=== PATIENT | female | born 1990 | race Caucasian/White ===

== ENCOUNTER 2017-01-12 16:12 | Inpatient (IN) ==
[2017-01-12 16:42] LABS: Basophils % 0.3 %; Eosinophils # 0.1 K/mcL (0.0-0.6); Eosinophils % 0.9 %; Hematocrit 33.2 % (35.3-44.9); Hemoglobin 11.4 g/dL (11.5-15.4); Immature Granulocytes % 0.9 % (0-4); Lymphocytes # 1.5 K/mcL (0.6-4.6); Lymphocytes % 14.4 %; Mean Corpuscular HGB Conc 34.3 g/dL (31.6-35.5); Mean Corpuscular Hemoglobin 28.6 pg (28.0-33.3); Mean Corpuscular Volume 83.2 fL (83.0-100.0); Mean Platelet Volume 10.7 fL (9.4-12.4); Monocytes # 0.8 K/mcL (0.0-1.3); Monocytes % 7.8 %; Neutrophils # 7.9 K/mcL (1.6-8.9); Platelet Count 234 K/mcL (140-400); Red Blood Count 3.99 M/mcL (3.82-4.97); Red Cell Distribution Width 13.4 % (11.5-14.5); Segmented Neutrophils % 75.7 %
[2017-01-12 16:54] LABS: Alanine Aminotransferase 8 Units/L (0-55); Aspartate Amino Transferase 16 Units/L (5-34); BUN/Creatinine Ratio 10 (6-26); Blood Urea Nitrogen 8 mg/dL (7-20); Lactate Dehydrogenase 217 Units/L (159-327); Uric Acid 4.2 mg/dL (2.6-6.0); eGFR For African Americans > 60 (> 60); eGFR For Non-African Americans > 60 (> 60)
[2017-01-12] MEDS ORDERED: *HR* Labetalol 20 MG/4 ML SYRINGE IVP ONE ×4 (17:00→18:08)
[2017-01-12] MEDS ORDERED: Ringers Solution, Lactated 1,000 ML ONE (17:00)
[2017-01-12] MEDS ORDERED: Famotidine 20 MG/2 ML VIAL IVP PRN (18:13)
[2017-01-12] MEDS ORDERED: Naloxone 0.4 MG/ML INJ IVP PRN (18:13)
[2017-01-12] MEDS ORDERED: Oxytocin 20 units/ LR 1000 mL 20 UNIT/1,000 ML BAG IVC SCH (18:15)
[2017-01-12] MEDS ORDERED: Ringers Solution, Lactated 1,000 ML IVC SCH (18:15)
[2017-01-12 18:27] LABS: Protein/Creatinine Ratio,Urine 2.37 mg/mg (0-0.20)
--- NOTE | 2017-01-12 18:31 | OB/GYN History & Physical ---
Date of Encounter: 01/12/17 Time of Encounter: 18:24 History of Present Illness Chief complaint: Hypertension in HPI: Ms. Humphrey is a 26 year old at 38 weeks and 6 days gestation that was sent to labor and delivery from the office today due to proteinuria. Upon arrival to labor and delivery her blood pressures were running 160-170's/100's. She denies headache, vision changes, epigastric pain, vaginal bleeding, and leaking of fluid. She states positive movement. She is GBS negative. Her blood type is A negative. She is rubella and varicella immune. She is HIV , Hep B, and Treponema negative. Past Med Surg Social Fam HX - Past Medical History Medical history: other Psychiatric history: no psych history - Past Surgical History Surgical History: other - Social History Smoking Status: Never smoker Smokeless Tobacco Status: No Alcohol use: none Drug use: none - Family History Mother Living Status: Still Living Hx Family Cardiac Disorders: Yes (HYPERTENSION) Hx Family Respiratory Disorders: No Hx Family Cancer: No Hx Family GI Disorders: No Hx Family Genitourinary Disorders: No Hx Family Endocrine Disorder: No Hx Family Musculoskeletal Disorders: No Hx Family Neuromuscular Disorders: No Hx Family Neurologic Disorders: No Hx Family HEENT Disorders: No Hx Family Autoimmune Disorders: No Hx Family Reproductive Disorders: No Hx Family Psychosocial Disorders: No Hx Family Medical Disorders: No Obstetrical History - Pregnancies : 1 Para: 0 Term: 0 : 0 Ab's: 0 Livin Medications and Allergies Cranberry Fruit Extract [Cranberry] 1 tab PO DAILY 01/12/17 [History] Loratadine [Claritin] 1 tab PO DAILY 01/12/17 [History] Multivitamin [Flintstones] 2 tab PO DAILY 01/12/17 [History] Allergies No Known Allergies Allergy (Verified 01/12/17 16:31) Review of System OB All systems PM: reviewed and no additional remarkable complaints except as stated Exam - Constitutional Constitutional: well developed, well nourished, no acute distress, average body habitus - HEENT HEENT: Normocephaly, Mucus Membranes Moist - Neck Neck exam: normal inspection - Lungs Respiratory exam: CTAB - Cardiovascular Cardiovascular exam: RRR, +S1, +S2 - Abdomen Abdomen: Present: bowel sounds normal, gravid - Extremities Extremities exam: normal capillary refill, normal inspection, radial pulses palpable and symetrical Deep Tendon Reflex Grade: 3+ Normal But Brisk - Cervix Dilation: 3 (3-4 per office) Effacement: 50 (per office) Station: -3 - Uterus Uterus exam: Present: normal size, normal contour - Comments Comments: FHTs 160 with moderate variability, 15x15 accels and no decels TOCO no contractions noted, no contractions palpated, uterus palpates soft and nontender Results Result Diagrams: 01/12/17 16:30 01/12/17 16:30 Abnormal lab results Hgb 11.4 g/dL (11.5-15.4) L 01/12/17 16:30 Hct 33.2 % (35.3-44.9) L 01/12/17 16:30 All other labs normal. - VTE Reasons for not Prescribing Prophylaxis: Treatment not Indicated - Low risk for VTE
[2017-01-12] MEDS ORDERED: Calcium Gluconate 1,000 MG/10 ML VIAL IVPB PRN (18:50)
[2017-01-12] MEDS ORDERED: Calcium Gluconate 1,000 MG/10 ML VIAL IVPB ONE (18:53)
--- NOTE | 2017-01-12 18:55 | Event Note ---
Date of Encounter: 01/12/17 Time of Encounter: 18:53 Pressures remain elevated (170'2/100's) despite labetalol 40mg given over the past 2 hours. FHTs in 160's with moderate variability, no accels, no decels, uterus soft, no contractions per toco Patient remains asymptomatic Start magnesium 4gm loading dose followed by 2gm/hr Hydralazine 5mg iv now insert urinary catheter begin pitocin induction POC per consult with Dr Ayala
[2017-01-12] MEDS ORDERED: Magnesium Sulfate 2 GM/100 ML PIGGYBACK IV SCH (19:00)
[2017-01-12] MEDS: Magnesium Sulfate 20 gm/500mL 20 GM/500 ML IV.SOLN IV SCH (19:31)
[2017-01-12] MEDS ORDERED: *HR* Morphine 2 MG/ML SYRINGE IVP ONE (20:06)
[2017-01-12] MEDS ORDERED: *HR* Morphine 10 MG/ML VIAL ONE (20:33)
--- NOTE | 2017-01-12 21:59 | OB Labor Progress Note ---
Date of Encounter: 01/12/17 Time of Encounter: 20:15 Labor Progress Note - Subjective Subjective: Patient continues to c/o pain in her right flank and is breathing through contractions - Vital Signs Vital Signs: Blood pressures remain elevated - Cervix Cervix: 3-4/50/-2 mid position - Heart Tones Heart Tones: 150's with moderate variability and 15x15 accels. no decels - [place]: Contractions palpated mild - irregular - Interventions Interventions: Continue to increase pitocin - Plan Plan: Continue to monitor vital signs, neuro, and urine output closely Pitocin currently at 4mu/min continue to increase as per orders Magnesium currently running at 2g/hr Give patient morphine 5mg IVP for pain Give patient 10mg Hydralazine IVP for increased blood pressure Patient may have epidural for pain control - discussed pros/cons of epidural GBS negative Anticipate vaginal delivery POC per consult with Dr Ayala
--- NOTE | 2017-01-12 23:52 | OB Labor Progress Note ---
Date of Encounter: 01/12/17 Time of Encounter: 23:49 Labor Progress Note - Subjective Subjective: Patient resting comfortably in bed. States pain is tolerable. She is lethargic, but is appropriate and awakens easily. - Vital Signs Vital Signs: BP 144/84 P 98 R 16 - Cervix Cervix: 3-4/60-70/-2 Vtx palpable - Heart Tones Heart Tones: 150's with moderate variability no accels no decels category II - Ivan Ivan: Contractions every 3-4 minutes 60 seconds in length palpate moderate uterus palpates soft between contractions - Plan Plan: Continue with routine magnesium monitoring protocol. Pitocin currently at 10mu/min; magnesium currently at 2g/hr Pain is currently well controlled, but patient may have epidural if requested GBS negative Increase pitocin as ordered until adequate labor is established Anticipate vaginal delivery POC per consult with Dr Ayala
[2017-01-13] MEDS ORDERED: Ringers Solution, Lactated 250 ML IVC PRN (02:51)
[2017-01-13] MEDS ORDERED: *HR* FentaNYL (PF) 100 MCG/2 ML VIAL EP ONE (02:51)
[2017-01-13] MEDS ORDERED: *HR* Ropivacaine/PF 0.2% 10 ML AMPUL EP ONE (02:51)
[2017-01-13] MEDS ORDERED: EPHEDrine 50 MG/ML VIAL IVP PRN (02:51)
--- NOTE | 2017-01-13 02:55 | Anesthesia Evaluation PreOp ---
Date of Encounter: 01/13/17 Time of Encounter: 02:30 - Past History Planned Operation: Labor Epidural Cardiac History: HTN (PIH) Pulmonary History: Denies Any Significant HX BOOSTER OPERATOR History: Denies Any Significant HX Other Medical History: Denies Any Significant HX Anesthesia History: No Prior Anesthetic Complications, Past Anesthesia (tonsils , sinus surgery) : Yes Alcohol Use: none Drug use: none Medications and Allergies Cranberry Fruit Extract [Cranberry] 1 tab PO DAILY 01/12/17 [History] Loratadine [Claritin] 1 tab PO DAILY 01/12/17 [History] Multivitamin [Flintstones] 2 tab PO DAILY 01/12/17 [History] Allergies No Known Allergies Allergy (Verified 01/12/17 16:31) - Meds/Allergy Pre-op Review Medications Reviewed: Yes Allergies Reviewed: Yes Beta Blockers on Current Med List: No If Beta Blockers taken, Date/Time (Last Dose taken): Labetalol since admission for [facility] on 01/12 Anesthesia Results - Labs 01/12/17 16:30 01/12/17 16:30 Anesthesia Exam Height: 1.63m Weight: 113.7kg NPO (# of Hours): >4hr Pain Scale: 7 Pain Scale Used: Numeric (1 - 10) - HEENT Pupil (Motor): Pupils equal Mallampati: II Teeth: Normal Oral Opening: Greater than 3 - BOOSTER OPERATOR LOC: Oriented BOOSTER OPERATOR Motor: Normal RUE, Normal LUE, Normal RLE, Normal LLE, Normal Face BOOSTER OPERATOR Sensory: Normal: RUE, LUE, RLE, LLE, Face - Cardiac Rhythm: Regular Murmur: None JVD: No Carotid Bruit: No - Pulmonary Breath Sounds: bilateral Clear Respiratory Effort: Symmetrical Anesthesia Assess/Plan ASA Score: 3 (PIH, BMI 43) Modified Cherry Scale for Level of Consciousness: Cooperative, oriented, and tranquil Anesthetic Plan: Regional Monitoring Plan: Standard Monitors Recovery Plan: Other
[2017-01-13] MEDS ORDERED: Epidural Premix (fent/bupiv) 110 ML EP SCH (03:00)
[2017-01-13] MEDS ORDERED: *HR* FentaNYL (PF) 100 MCG/2 ML VIAL ONE ×2 (03:00→05:56)
[2017-01-13] MEDS ORDERED: Epidural Premix (fent/bupiv) 110 ML EP ONE (03:01)
--- NOTE | 2017-01-13 03:37 | Anesthesia Procedures ---
Date of Encounter: 01/13/17 Time of Encounter: 03:13 Procedures: Anesthesia - Epidural/Spinal Patient ID/Chart reviewed: Yes Patient examined: Yes OB Eval: : 1 OB Eval: Hx Para: 0 OB Eval: Dilated at (cm): 4 OB Eval: Contractions: Non-stressed pattern Consent Obtained: Yes Supplemental Oxygen: None/Room Air Site Prep: Aseptic Technique, Sterile prep and drape, 0.5% Chlorhexidine/Alcohol Patient position: upright Local Anesthetic: Lidocaine 1% Amount of Local Anesthetic used: 2 Touhy Needle Gauge: 18 Touhy Needle Depth (cm): 7 Catheter Depth at Skin (cm): 14 Test Dose (1.5% Lido + Epi): Volume given (mls): 5 Test Dose Result: Negative Loading Dose: Fentanyl (mcg): 100 Loading Dose: Other: Ropivacaine 0.5% 10mL Loading Dose Administered: Thru Catheter Infusion Med: 0.125% Bupivacaine w/ 2 mcg/ml Fentanyl Infusion Rate (mls/hr): 15 (Bolus 4mL q15min; max 3/hr) Catheter Secured in Place: Tegaderm, Tape Interspace Used: L2-L3 Loss of Resistance (LAONSO): Yes Blood: No CSF: No Paresthesia: No Procedure: Patient tolerated well. x1 attempt in sterile fashion. Vitals + FHT's: 0313 - 164/100, 104 0321(test) - HR 112. No change after test 0325 - 139/78, 111 0328 - 152/93, 106
--- NOTE | 2017-01-13 05:32 | OB Labor Progress Note ---
Date of Encounter: 01/13/17 Time of Encounter: 05:20 Labor Progress Note - Subjective Subjective: patient not feeling contractions, comfortable with her epiduraL - Cervix Cervix: 4/80/-2 AROM clear flluid - Heart Tones Heart Tones: FSM placed FHT's 150's with decreased variability with increase variabilty with scalp stimulation - [place]: IUPC placed Contraction every 3-5 min with pitocin off for past 30 min, - Plan Plan: will get stat Mag level with repeat PIH labs, if mag elevated will decrease down to see if will improve variability, if tones do not improve will discuss section
[2017-01-13 05:35] LABS: Basophils # 0.1 K/mcL (0.0-0.2); Basophils % 0.3 %; Eosinophils % 0.1 %; Hematocrit 34.4 % (35.3-44.9); Hemoglobin 11.7 g/dL (11.5-15.4); Immature Granulocytes % 0.8 % (0-4); Lymphocytes # 1.1 K/mcL (0.6-4.6); Lymphocytes % 7.1 %; Mean Corpuscular Hemoglobin 28.8 pg (28.0-33.3); Mean Corpuscular Volume 84.7 fL (83.0-100.0); Mean Platelet Volume 10.8 fL (9.4-12.4); Monocytes % 6.7 %; Neutrophils # 12.8 K/mcL (1.6-8.9); Platelet Count 221 K/mcL (140-400); Red Blood Count 4.06 M/mcL (3.82-4.97); Red Cell Distribution Width 13.7 % (11.5-14.5)
[2017-01-13 05:48] LABS: Alanine Aminotransferase 7 Units/L (0-55); Aspartate Amino Transferase 15 Units/L (5-34); Lactate Dehydrogenase 202 Units/L (159-327); Uric Acid 4.5 mg/dL (2.6-6.0); eGFR For African Americans > 60 (> 60); eGFR For Non-African Americans > 60 (> 60)
[2017-01-13] MEDS ORDERED: Metoclopramide 10 MG/2 ML VIAL ONE (05:48)
[2017-01-13 05:50] LABS: Magnesium 5.4 mg/dL (1.6-2.6)
--- NOTE | 2017-01-13 05:50 | OB Labor Progress Note ---
Date of Encounter: 01/13/17 Time of Encounter: 05:45 Labor Progress Note - Subjective Subjective: heart tones are not improving and seem to be getting flatter, there is no variablilty and blood pressure is elevating again due to patients anxiety, discussed situation with the patient and we have agreed to proceed on with a section. - Heart Tones Heart Tones: FHT's 150's with no variability - [place]: contractions are every 3-5 min - Plan Plan: prep for section anesthesia have been notified
[2017-01-13 05:51] LABS: BUN/Creatinine Ratio 8 (6-26); Blood Urea Nitrogen 6 mg/dL (7-20)
[2017-01-13] MEDS ORDERED: Metoclopramide 10 MG/2 ML VIAL IVP ONE (05:52)
[2017-01-13] MEDS: Magnesium Sulfate 20 gm/500mL 20 GM/500 ML IV.SOLN IV SCH (05:53)
[2017-01-13] MEDS ORDERED: *HR* Oxytocin 10 UNIT/ML VIAL IM ONE (05:56)
[2017-01-13] MEDS ORDERED: Chloroprocaine/PF 20 ML VIAL INFILT ONE (05:56)
[2017-01-13] MEDS ORDERED: *HR* Morphine Sulfate/PF 5 MG/10 ML AMPUL ONE (05:56)
[2017-01-13] MEDS ORDERED: Ringers Solution, Lactated 1,000 ML ONE (06:44)
[2017-01-13] MEDS ORDERED: Ondansetron 4 MG/2 ML VIAL ONE (06:55)
[2017-01-13] MEDS ORDERED: Ondansetron 4 MG/2 ML VIAL IVP PRN ×3 (07:28→15:06)
[2017-01-13] MEDS ORDERED: *HR* HYDROmorphone (PF) 1 MG/ML SYRINGE IVP PRN ×2 (07:28→15:06)
[2017-01-13] MEDS ORDERED: Ibuprofen 400 MG TABLET PO PRN ×2 (07:28→15:06)
[2017-01-13] MEDS ORDERED: *HR* Morphine 2 MG/ML SYRINGE IVP PRN ×2 (07:28→15:06)
[2017-01-13] MEDS ORDERED: Naloxone 0.4 MG/ML INJ IVP PRN ×3 (07:28→15:06)
[2017-01-13] MEDS ORDERED: *HR* OxyCODONE/APAP 5/325 TABLET PO PRN ×2 (07:28→15:06)
[2017-01-13] MEDS ORDERED: Acetaminophen IV 1,000 MG/100 ML INFUS..BTL IVPB ONE ×2 (07:44→08:15)
--- NOTE | 2017-01-13 08:07 | OB/GYN Procedure Note ---
Section - Date of procedure: 01/13/17 Preop diagnosis: other (Intrauterine at 39-0/7 weeks, severe preeclampsia, nonreassuring heart tones) Post-op diagnosis: same Procedure: primary low transverse Surgeon: Ivan Ayala Estimated blood loss (cc): 750 Anesthesiologist: Ana Amaya Registered Nurse Bone Marrow Transplant: Elton Villatoro Anesthesia Type: Epidural section complications: none Disposition: L&D Recovery Room Specimens: Placenta - Infant (s) A Delivery Date: 01/13/17 Delivery Time: 06:49 Presentation: vertex Position: IMER Route of delivery: other ( section) Gender: Female Pounds: 7 Ounces: 1 Gram Weight: 3.2 kg at 1 minute: 8 at 5 minutes: 8 Shoulder Dystocia: not encountered Placenta: spontaneous Cord: nuchal cord (Around left lower extremity), 3 umbilical vessels - Narrative Narrative: Patient is a 26-year-old 1 para 0 at 38-6/7 weeks who presented to labor and delivery from the office due to proteinuria. Patient's has been watched closely some elevated blood pressures blood pressure was slightly elevated office but she was spilling moderate amount of protein. She was sent to labor and delivery for preeclampsia workup upon arrival to labor and delivery blood pressures were markedly elevated 160s over 110 to as high as 180/ 120. Patient did require labetalol on 3 different occasions 10 mg, 10 mg, 20 mg followed by hydralazine 5 mg, 10 mg. We did start on magnesium sulfate milligram loading dose followed by 2 g an hour. Patient's labs were normal but her protein creatinine ratio was 2.27. We did decide to proceed on with delivery she was started on Pitocin. Patient was not making any cervical change and heart tones became very flat with loss of variability. She was artificially ruptured clear fluid noted and internalized. She was pranay well Pitocin had to be turned off due to the loss of variability and was very little reaction to scalp stimulation. Because patient was still only 4 cm in tones did not look well section was called. Procedure: Patient was taken to the operating room where epidural anesthesia was found be adequate. She was placed in the dorsal supine position with leftward tilt and prepped and draped in usual fashion. Timeout was obtained. A Pfannenstiel incision was made with a scalpel and carried down through the underlying tissue to the fascia was identified. Fascia was nicked in midline extended laterally with the Manning scissors. The superior and inferior edges of the fascia were grasped tented up and dissected rectus muscles. Rectus muscles were in midline parietal peritoneum was identified tented up and entered sharply. This was extended superiorly and inferiorly with Metzenbaum scissors. Bladder blade was inserted and vesicouterine peritoneum was identified tented up and entered sharply. This was extended laterally the bladder flap created digitally. The lower uterine segment was then sized with a scalpel and extended laterally with digital manipulation. The 's head was delivered followed by the body. There was a nuchal cord 1 prepped around the lower extremity on the left. Baby was crying cord is clamped and cut infant was handed off to waiting pediatric team. Placenta was spontaneously delivered and the uterus was exteriorized and cleaned of all clots and debris. The lower uterine segment was then closed using an 0 Vicryl in a running locking stitch by a 2 layer closure. Good hemostasis was noted the uterus was returned to the abdomen and gutters were cleaned of all clots and debris and copiously irrigated the fascia was then closed using a #1 stratafix suture in a running stitch from both corners to midline. The skin was then closed using a 0 Vicryl in a subcuticular manner. A gurpreet dressing was applied and the patient was taken to recovery room in stable condition. All needle/sponge counts were correct 3 and she did receive preoperative antibiotics. She will be observed 2 hours before being taken to the floor she will be continued on her magnesium sulfate for 24 hours.
[2017-01-13] MEDS ORDERED: Rho Immune Globulin 1,500 UNIT SYRINGE IM ONE (15:06)
[2017-01-13] MEDS ORDERED: Sennosides 8.6 MG TABLET PO PRN (15:06)
[2017-01-13] MEDS ORDERED: Simethicone 80 MG TAB.CHEW PO PRN (15:06)
[2017-01-13] MEDS ORDERED: Metoclopramide 10 MG/2 ML VIAL IVP PRN (15:06)
[2017-01-13] MEDS ORDERED: Calcium Gluconate 1,000 MG/10 ML VIAL IVPB PRN (15:06)
[2017-01-13] MEDS ORDERED: *HR* OxyCODONE/APAP 10/325 TABLET PO PRN (15:06)
[2017-01-13 15:32] LABS: Basophils % 0.3 %; Eosinophils # 0.1 K/mcL (0.0-0.6); Eosinophils % 0.4 %; Hematocrit 27.5 % (35.3-44.9); Immature Granulocytes % 0.6 % (0-4); Lymphocytes # 1.3 K/mcL (0.6-4.6); Lymphocytes % 10.5 %; Mean Corpuscular HGB Conc 34.9 g/dL (31.6-35.5); Mean Corpuscular Hemoglobin 29.3 pg (28.0-33.3); Mean Corpuscular Volume 83.8 fL (83.0-100.0); Mean Platelet Volume 10.5 fL (9.4-12.4); Platelet Count 190 K/mcL (140-400); Red Blood Count 3.28 M/mcL (3.82-4.97); Red Cell Distribution Width 13.6 % (11.5-14.5); Segmented Neutrophils % 80.2 %
[2017-01-13 15:36] LABS: Hemoglobin 9.6 g/dL (11.5-15.4)
[2017-01-13] MEDS: *HR* OxyCODONE/APAP 5/325 TABLET PO PRN ×2 (15:37→19:30)
[2017-01-13] MEDS: Magnesium Sulfate 20 gm/500mL 20 GM/500 ML IV.SOLN IVC SCH (15:38)
[2017-01-13] MEDS: Oxytocin 20 units/ LR 1000 mL 20 UNIT/1,000 ML BAG IVC SCH ×2 (15:39→22:00)
[2017-01-13 16:10] LABS: Alanine Aminotransferase 7 Units/L (0-55); Aspartate Amino Transferase 17 Units/L (5-34); BUN/Creatinine Ratio 7 (6-26); Lactate Dehydrogenase 323 Units/L (159-327); Uric Acid 4.7 mg/dL (2.6-6.0); eGFR For African Americans > 60 (> 60); eGFR For Non-African Americans > 60 (> 60)
[2017-01-13 16:14] LABS: Blood Urea Nitrogen 5 mg/dL (7-20)
[2017-01-13] MEDS ORDERED: *HR* Labetalol 20 MG/4 ML SYRINGE IVP ONE (18:40)
[2017-01-13] MEDS: Ibuprofen 600 MG TABLET PO PRN (19:30)
[2017-01-14] MEDS: Magnesium Sulfate 20 gm/500mL 20 GM/500 ML IV.SOLN IVC SCH (01:38)
[2017-01-14 03:51] LABS: Basophils % 0.3 %; Eosinophils # 0.1 K/mcL (0.0-0.6); Eosinophils % 0.8 %; Hematocrit 27.6 % (35.3-44.9); Hemoglobin 9.5 g/dL (11.5-15.4); Immature Granulocytes % 1.2 % (0-4); Lymphocytes # 1.3 K/mcL (0.6-4.6); Lymphocytes % 9.9 %; Mean Corpuscular HGB Conc 34.4 g/dL (31.6-35.5); Mean Corpuscular Volume 84.1 fL (83.0-100.0); Mean Platelet Volume 10.3 fL (9.4-12.4); Monocytes # 0.9 K/mcL (0.0-1.3); Monocytes % 6.7 %; Neutrophils # 10.4 K/mcL (1.6-8.9); Platelet Count 189 K/mcL (140-400); Red Blood Count 3.28 M/mcL (3.82-4.97); Red Cell Distribution Width 13.9 % (11.5-14.5); Segmented Neutrophils % 81.1 %
[2017-01-14] MEDS: Ibuprofen 600 MG TABLET PO PRN ×2 (03:57→11:24)
[2017-01-14] MEDS: Prenatal Vit/FA 1 EACH TABLET PO SCH (07:54)
[2017-01-14] MEDS: *HR* OxyCODONE/APAP 5/325 TABLET PO PRN (07:55)
--- NOTE | 2017-01-14 09:04 | OB/GYN Progress Note ---
Date of Encounter: 01/14/17 Time of Encounter: 08:50 - Assessment and Plan (1) S/P Current Visit: Yes Status: Acute (2) Severe pre-eclampsia Current Visit: Yes Status: Acute delivered. Blood pressures are improved. Magnesium discontinued this morning. Ambulate with assist until stable. Tolerating regular diet. Baby is doing well. Qualifiers: Trimester: unspecified trimester Qualified Code(s): O14.10 - Severe pre- eclampsia, unspecified trimester Subjective - Subjective Principal diagnosis: POD 1 primary Patient reports: appetite normal, pain well controlled, no nauseated [place]: doing well Objective - Vital Signs Latest vital signs: Vital Signs Temp Pulse Pulse Resp BP Pulse Ox 01/14/17 07:44 95 14 145/93 01/14/17 06:33 84 18 136/85 01/14/17 05:30 89 20 134/80 01/14/17 04:31 97 16 118/73 01/14/17 03:30 100 18 144/93 01/14/17 02:30 108 18 157/97 01/14/17 01:30 99 16 136/88 01/14/17 00:30 92 16 127/83 01/13/17 23:30 98.2 F 94 16 138/84 93 01/13/17 22:39 90 16 143/83 01/13/17 21:37 98 20 138/87 01/13/17 20:30 100 18 143/88 01/13/17 19:30 98.6 F 101 16 137/87 95 01/13/17 18:23 104 20 158/103 01/13/17 17:20 98.3 F 108 18 151/101 95 01/13/17 16:00 98.3 F 101 18 145/95 95 01/13/17 15:05 98 18 161/96 01/13/17 15:00 98.2 F 101 18 161/96 96 01/13/17 14:00 106 106 18 145/87 01/13/17 13:00 98.1 F 97 98 18 142/80 01/13/17 12:00 103 18 135/79 01/13/17 11:10 98.1 F 102 102 18 143/80 01/13/17 10:10 98.4 F 105 105 18 127/77 01/13/17 09:40 98.2 F 101 101 18 137/75 95 Intake and Output 01/13/17 01/14/17 01/14/17 23:59 07:59 15:59 Intake Total 1000 / 1000 875 / 875 Output Total 1730 / 1730 1720 / 1720 Balance -730 / -730 -845 / -845 Intake: IV Fluids 1000 / 1000 475 / 475 Magnesium Sulfate 20 gm/ 475 / 475 500mL Premix 20 gm In 500 ml @ 2 GM/HR 50 mls/hr IVC .Q10H [facility] Rx#: [id number] Pitocin 20 unit In 1,000 1000 / 1000 ml @ 125 mls/hr IVC .Q8H [facility] Rx#:[id number] Oral 400 / 400 Output: Urine 1330 / 1330 1720 / 1720 Catheter 400 / 400 - Exam Lungs: bilateral: normal Chest: Normal S1, Normal S2 Extremities: Present: normal Abdomen: Present: normal appearance, soft. Absent: distention, tenderness Incision: Present: dressed Uterus: Present: normal, firm - Labs Labs: Laboratory Results - last 24 hr 01/13/17 01/13/17 01/14/17 15:23 15:23 03:41 WBC 12.5 H 12.9 H RBC 3.28 L 3.28 L Hgb 9.6 L D 9.5 L Hct 27.5 L 27.6 L MCV 83.8 84.1 MCH 29.3 29.0 MCHC 34.9 34.4 RDW 13.6 13.9 Plt Count 190 189 MPV 10.5 10.3 Immature Gran % 0.6 1.2 Seg Neutrophils % 80.2 81.1 Lymphocytes % 10.5 9.9 Monocytes % 8.0 6.7 Eosinophils % 0.4 0.8 Basophils % 0.3 0.3 Neutrophils # 10.0 H 10.4 H Lymphocytes # 1.3 1.3 Monocytes # 1.0 0.9 Eosinophils # 0.1 0.1 Basophils # 0.0 0.0 BUN 5 L Creatinine 0.73 Est GFR ( Amer) > 60 Est GFR (Non-Af Amer) > 60 BUN/Creatinine Ratio 7 Uric Acid 4.7 AST 17 ALT 7 Lactate Dehydrogenase 323
[2017-01-15] MEDS: *HR* OxyCODONE/APAP 5/325 TABLET PO PRN ×4 (00:44→20:49)
[2017-01-15] MEDS: Ibuprofen 600 MG TABLET PO PRN ×2 (00:44→07:54)
[2017-01-15] MEDS: Prenatal Vit/FA 1 EACH TABLET PO SCH (07:55)
--- NOTE | 2017-01-15 09:00 | OB/GYN Progress Note ---
Date of Encounter: 01/15/17 Time of Encounter: 08:57 - Assessment and Plan (1) S/P Current Visit: Yes Status: Acute Pt meeting post-op milestones. (2) Severe pre-eclampsia Current Visit: Yes Status: Acute Pt denies s/sx preeclampsia. BP 155/115 this am. Will start medication after discussing with Dr. Ugalde. Pt is s/p 24 hours magnesium. Qualifiers: Trimester: unspecified trimester Qualified Code(s): O14.10 - Severe pre- eclampsia, unspecified trimester Subjective - Subjective Interval history: Pt meeting post-op milestones. Patient reports: appetite normal, voiding normally, pain well controlled, ambulating normally : doing well, nursing well Objective - Vital Signs Latest vital signs: Vital Signs Temp Pulse Resp BP Pulse Ox 01/14/17 19:45 98.4 F 112 16 134/85 97 01/14/17 17:10 98.2 F 100 16 138/87 96 01/14/17 11:20 98.2 F 96 16 138/96 96 Intake and Output 01/14/17 01/15/17 01/15/17 23:59 07:59 15:59 Intake Total 400 / 400 800 / 800 Output Total 800 / 800 650 / 650 Balance -400 / -400 150 / 150 Intake: Oral 400 / 400 800 / 800 Output: Urine 800 / 800 650 / 650 Other: Weight 109.1 kg Patient Weight 01/15/17 23:59 Weight 109.1 kg - Exam Lungs: bilateral: normal Chest: Normal S1, Normal S2 Extremities: Present: edema (2+ pitting bilaterally, no erythema or warmth) Abdomen: Present: soft. Absent: tenderness Incision: Present: dressed (YUMI dry and intact) Uterus: Present: firm
[2017-01-15 14:43] LABS: Basophils % 0.3 %; Eosinophils # 0.2 K/mcL (0.0-0.6); Eosinophils % 1.5 %; Hematocrit 26.6 % (35.3-44.9); Hemoglobin 9.1 g/dL (11.5-15.4); Immature Granulocytes % 0.7 % (0-4); Lymphocytes # 1.7 K/mcL (0.6-4.6); Lymphocytes % 11.5 %; Mean Corpuscular HGB Conc 34.2 g/dL (31.6-35.5); Mean Corpuscular Hemoglobin 29.2 pg (28.0-33.3); Mean Corpuscular Volume 85.3 fL (83.0-100.0); Mean Platelet Volume 9.8 fL (9.4-12.4); Monocytes # 0.9 K/mcL (0.0-1.3); Monocytes % 6.1 %; Neutrophils # 11.9 K/mcL (1.6-8.9); Platelet Count 221 K/mcL (140-400); Red Blood Count 3.12 M/mcL (3.82-4.97); Segmented Neutrophils % 79.9 %
[2017-01-15 14:56] LABS: Alanine Aminotransferase 7 Units/L (0-55); Aspartate Amino Transferase 15 Units/L (5-34); BUN/Creatinine Ratio 15 (6-26); Blood Urea Nitrogen 12 mg/dL (7-20); Lactate Dehydrogenase 233 Units/L (159-327); eGFR For African Americans > 60 (> 60); eGFR For Non-African Americans > 60 (> 60)
--- NOTE | 2017-01-15 20:26 | Internal Medicine Consult Note ---
Date of Encounter: 01/15/17 Time of Encounter: 19:40 - Assessment and Plan (1) Hypertension Current Visit: Yes Status: Acute Assessment and plan: 1. I called and discussed with pharmacy treatment options, especially in the face of breast feeding. 2. Our safest choice is to continue and increase Labetolol. 3. Increase Labetolol to 400 mg TID and monitor BP closely. 4. Repeat chemistries in am. 5. Will order EKG. 6. I'll ask my daytime hospitalists to follow up tomorrow. 7. Recommend outpatient follow up with family physician for continued BP management. 8. If unable to control BP and/or increasing difficulty with management, consider nephrology consult inpatient and/or outpatient follow up. Presently, however, I feel we can stabilize her BP for discharge soon and outpatient follow up. Qualifiers: Hypertension type: other secondary hypertension Qualified Code(s): I15.8 - Other secondary hypertension (2) Severe pre-eclampsia Current Visit: Yes Status: Acute Assessment and plan: 1. Treated with magnesium infusion and delivery per OB. 2. Further treatment per OB. Qualifiers: Trimester: third trimester Qualified Code(s): O14.13 - Severe pre-eclampsia , third trimester Internal Medicine - CN: HPI - Data of Consult Consult date: 01/15/17 Requesting Physician: Sourav Ayala - Consult Narrative Reason for consult: uncontrolled hypertension History of present illness: Ms. Humphrey is a 26 year old female who just delivered her baby 2 days ago by C -section. was uncomplicated until the last few days prior to delivery when she developed severe preeclampsia. Delivery was by . Since delivery, her blood pressure remains elevated she has had some proteinuria. She completed 24 hours of magnesium infusion per OB protocol. Hospitalist group was consulted for blood pressure management Upon my assessment of the patient, she feels well and has no complaints other than edema and blood pressure management. She denies any chest pain, shortness of breath, palpitations, headache, vision changes, nausea, or vomiting. She is breast-feeding her baby. She has no other medical history. Past Med Surg Social Fam HX - Past Medical History Attestation: Yes The following information was validated with the patient. Source: patient, old records reviewed Medical history: no medical history Psychiatric history: no psych history - Past Surgical History Surgical History: other (tonsillectomy/addenoidectomy) - Social History Smoking Status: Never smoker Smokeless Tobacco Status: No Alcohol use: none Drug use: none Occupational status: employed Current living situation: Home, With Family Activity Level: Independent ambulation - Family History Mother Living Status: Still Living Hx Family Cardiac Disorders: Yes (HYPERTENSION) Hx Family Respiratory Disorders: No Hx Family Cancer: No Hx Family GI Disorders: No Hx Family Genitourinary Disorders: No Hx Family Endocrine Disorder: No Hx Family Musculoskeletal Disorders: No Hx Family Neuromuscular Disorders: No Hx Family Neurologic Disorders: No Hx Family HEENT Disorders: No Hx Family Autoimmune Disorders: No Hx Family Reproductive Disorders: No Hx Family Psychosocial Disorders: No Hx Family Medical Disorders: No Father Living Status: Still Living Hx Family Cardiac Disorders: No - Constitutional Constitutional: no chills, no fever(s) - EENT Eyes: no blurry vision, no change in vision Ears: no ear pain, no tinnitus Nose, mouth and throat: no sinus pain, no sore throat - Cardiovascular Cardiovascular ROS IM: edema, no chest pain, no dyspnea, no dyspnea on exertion , no palpitations - Respiratory Respiratory: no cough, no dyspnea - Gastrointestinal Gastrointestinal: no nausea, no vomiting - Musculoskeletal Musculoskeletal ROS IM: no arthralgias, no back pain, no joint swelling - Integumentary Integumentary IM: no rash, no jaundice - Neurological Neurological ROS: no dizziness, no focal weakness, no headache(s) - Psychiatric Psychiatric: no anxiety, no depression - Endocrine Endocrine IM: no polydipsia, no polyuria - Allergic/Immunologic Allergic/Immunologic: no wheezing, no GI upset with certain foods Internal Medicine - CN: Meds Cranberry Fruit Extract [Cranberry] 1 tab PO DAILY 01/12/17 [History] Loratadine [Claritin] 1 tab PO DAILY 01/12/17 [History] Multivitamin [Flintstones] 2 tab PO DAILY 01/12/17 [History] Allergies No Known Allergies Allergy (Verified 01/12/17 16:31) Internal Medicine - CN: Exam - Constitutional Vitals: Temp Pulse Resp BP Pulse Ox 97.7 F 98 16 146/95 97 01/15/17 17:49 01/15/17 17:49 01/15/17 17:49 01/15/17 17:49 01/14/17 19:45 General appearance IM: Present: cooperative, A&O X 3, pleasant, no acute distress, answers questions appropriately - Head Head exam: Present: atraumatic, normal inspection - Expanded Head Exam Head exam expanded IM: Absent: general tenderness - Eye Eye exam: Present: EOMI, normal appearance, PERRL. Absent: scleral icterus Pupils: Present: normal accommodation - ENT ENT exam: Present: mucous membranes moist, normal exam - Neck Neck exam general surgery: Present: full ROM, lymphadenopathy, supple. Absent: tenderness, thyromegaly - Expanded Neck Exam Neck exam: Absent: carotid bruit - Respiratory Respiratory exam: Present: CTAB. Absent: chest wall tenderness, rales, rhonchi , wheezes - Cardiovascular Cardiovascular exam IM: Present: RRR, +S1, +S2. Absent: diastolic murmur, systolic murmur - GI/Abdominal GI/Abdominal exam IM: Present: normal bowel sounds, soft - Extremities Exam Extremities exam IM: Present: normal capillary refill, pedal edema, warm. Absent: calf tenderness, joint swelling, tenderness - Back Exam Back exam: Absent: CVA tenderness (L), CVA tenderness (R) - Neurological Exam Neurological exam: Present: alert, CN II-XII intact, oriented X3, no focal deficits - Psychiatric Psychiatric exam: Present: normal affect, normal mood - Skin Skin exam IM: Present: dry, warm. Absent: rash Internal Medicine - CN: Reslt - Labs CBC & Chem 7: 01/15/17 14:34 01/15/17 14:34 Labs: Short CBC 01/15/17 Range/Units 14:34 WBC 14.9 H (4.3-11.1) K/mcL Hgb 9.1 L (11.5-15.4) g/dL Hct 26.6 L (35.3-44.9) % Plt Count 221 (140-400) K/mcL Neutrophils # 11.9 H (1.6-8.9) K/mcL BMP 01/15/17 14:34 BUN 12 Creatinine 0.78 Liver Function 01/15/17 Range/Units 14:34 AST 15 (5-34) Units/L ALT 7 (0-55) Units/L Consult Discharge Plan - Plan Referrals: NO,PCP [Primary Care Provider] -
[2017-01-16] MEDS: *HR* OxyCODONE/APAP 5/325 TABLET PO PRN ×5 (00:56→21:45)
[2017-01-16 04:49] LABS: BUN/Creatinine Ratio 17 (6-26); Blood Urea Nitrogen 12 mg/dL (7-20); Calcium 8.8 mg/dL (8.6-10.8); Carbon Dioxide 20 mEq/L (19-29); Chloride 109 mEq/L (98-109); Glucose 82 mg/dL (70-99); Osmolality,Calculated 287 (280-300); Potassium 3.9 mEq/L (3.5-4.5); Sodium 139 mEq/L (136-145); eGFR For African Americans > 60 (> 60); eGFR For Non-African Americans > 60 (> 60)
[2017-01-16] MEDS: Prenatal Vit/FA 1 EACH TABLET PO SCH (08:12)
--- NOTE | 2017-01-16 10:22 | OB/GYN Progress Note ---
Date of Encounter: 01/16/17 Time of Encounter: 10: Subjective - Subjective Principal diagnosis: s/p delivery Interval history: S/P Primary C/S day 3 Patient states pain is well controlled Lochia is light and without clots States passing flatus and voiding normally Denies headache, visual disturbances, and epigastric pain Edema in BLE Blood pressure remains elevated. Discuss case with Dr Alexander and internal medicine. Anticipate discharge home tomorrow. Patient reports: appetite normal, voiding normally, pain well controlled, ambulating normally [place]: doing well Objective - Vital Signs Latest vital signs: Vital Signs Temp Pulse Resp BP Pulse Ox 01/16/17 07:30 98.0 F 106 18 149/103 01/16/17 05:30 101 12 149/97 01/16/17 03:31 97.9 F 105 16 146/98 96 01/16/17 02:12 105 136/87 01/15/17 23:55 106 12 160/96 95 01/15/17 23:52 98.3 F 105 12 176/119 95 01/15/17 22:05 98.4 F 103 16 155/102 95 01/15/17 20:28 98.1 F 105 16 163/104 97 01/15/17 17:49 97.7 F 98 16 146/95 Intake and Output 01/15/17 01/16/17 01/16/17 23:59 07:59 15:59 Intake Total 500 / 500 800 / 800 360 / 360 Output Total 700 / 700 2800 / 2800 Balance -200 / -200 -2000 / -2000 360 / 360 Intake: Oral 500 / 500 800 / 800 360 / 360 Output: Urine 700 / 700 2800 / 2800 Other: Meal Breakfast Percent of Meal Consumed 100% Weight 108.1 kg Patient Weight 01/16/17 23:59 Weight 108.1 kg - Labs Labs: Laboratory Results - last 24 hr 01/15/17 01/15/17 01/16/17 14:34 14:34 04:03 WBC 14.9 H RBC 3.12 L Hgb 9.1 L Hct 26.6 L MCV 85.3 MCH 29.2 MCHC 34.2 RDW 14.0 Plt Count 221 MPV 9.8 Immature Gran % 0.7 Seg Neutrophils % 79.9 Lymphocytes % 11.5 Monocytes % 6.1 Eosinophils % 1.5 Basophils % 0.3 Neutrophils # 11.9 H Lymphocytes # 1.7 Monocytes # 0.9 Eosinophils # 0.2 Basophils # 0.0 Sodium 139 Potassium 3.9 Chloride 109 Carbon Dioxide 20 BUN 12 12 Creatinine 0.78 0.70 Est GFR ( Amer) > 60 > 60 Est GFR (Non-Af Amer) > 60 > 60 BUN/Creatinine Ratio 15 17 Glucose 82 Calculated Osmolality 287 Uric Acid 4.0 Calcium 8.8 AST 15 ALT 7 Lactate Dehydrogenase 233
--- NOTE | 2017-01-16 13:36 | Electrocardiograph Report ---
[place] [id number] Test Date: 2017-01-15 Pat Name: Leeanne Humphrey Department: 102 Room: 27 Gender: Female [employer]: ZAFAR : 1990 Requested By: Sourav Ayala Order Number: [id number] Reading MD: Bella Feliciano Measurements Intervals [place] Rate: 102 P: 60 PA: 155 QRS: 36 QRSD: 90 T: 17 QT: 316 QTc: 375 Interpretive Statements SINUS TACHYCARDIA NONSPECIFIC ST \T\ T-WAVE ABNORMALITY ABNORMAL RHYTHM ECG Electronically Signed On 01-16-2017 13:35:32 EDT by Bella Feliciano
--- NOTE | 2017-01-16 13:36 | Electrocardiograph Report ---
[place] [id number] Test Date: 2017-01-15 Pat Name: Leeanne Humphrey Department: 102 Room: [facility] Gender: F [employer]: ZAFAR : 1990 Requested By: Warren Salas Order Number: [id number] Reading MD: Bella Feliciano Measurements Intervals [place] Rate: 100 P: 63 MT: 162 QRS: 34 QRSD: 89 T: 9 QT: 318 QTc: 375 Interpretive Statements SINUS TACHYCARDIA NONSPECIFIC T-WAVE ABNORMALITY ABNORMAL RHYTHM ECG Electronically Signed On 01-16-2017 13:35:21 EDT by Bella Feliciano
--- NOTE | 2017-01-16 14:38 | Event Note ---
Date of Encounter: 01/16/17 Time of Encounter: 14:33 patient followed as medical consult for uncontrolled HTN 2/2 pre- eclampsia , s/ p delivery. seen at the bedside, denies any complains other than mild headache BP much controlled, today, has b/l lower leg swelling possible from proteinuria from eclampsia, she says this mucn better though. will continue with labetalol 400mg tid and will add lasix 20 mg po daily, will f/u with her PCP, if swelling is better, can dc lasix. thank you for consulting hospitalist service.
--- NOTE | 2017-01-16 16:40 | Event Note ---
Date of Encounter: 01/16/17 Time of Encounter: 16:32 Patient's blood pressure remains increased after starting Labetalol 400mg PO TID this am. Plan on keeping patient until tomorrow morning to monitor blood pressure. Hospitalist consult recommended using lasix upon discharge; we will not be sending patient home with lasix due to current Patient updated on plan of care; patient tearful when discussing POC, but agrees to stay tonight. POC per consult with Dr Alexander
[2017-01-17] MEDS: *HR* OxyCODONE/APAP 5/325 TABLET PO PRN ×3 (01:35→10:36)
[2017-01-17] MEDS: Prenatal Vit/FA 1 EACH TABLET PO SCH (08:04)
[2017-01-17] MEDS ORDERED: NIFEdipine XL (24 HR) 30 MG TAB.ER.24 PO SCH (09:00)
--- NOTE | 2017-01-17 10:35 | Discharge Summary ---
Date of Encounter: 01/17/17 Time of Encounter: 10:31 - Discharge Diagnosis (1) S/P Priority: Primary Status: Acute (2) Severe pre-eclampsia Priority: Primary Status: Acute Comments: Added Procardia this morning and blood pressure improved. Patient currently complains of headache that is normal for her. She believes it to be due to not wearing her glasses and fatigue. She is requesting pain medication. If headache resolves and she remains normotensive with current meds (Procardia xl 30 mg daily and Labetolol 400 mg po tid) she will be discharged home later today. If the above is not met, she will remain inpatient until she is under better control and asymptomatic. Qualifiers: Trimester: third trimester Qualified Code(s): O14.13 - Severe pre-eclampsia , third trimester - Discharge Medications Prescriptions: OxyCODONE/APAP 5/325 [Percocet 5/325 MG] 1 each PO Q4HR PRN #42 tablet PRN Reason: Pain Labetalol [Trandate] 400 mg PO TID #90 tablet NIFEdipine XL (24 HR) [Procardia XL] 30 mg PO DAILY #30 tab.er.24 Home Medications: Cranberry Fruit Extract [Cranberry] 1 tab PO DAILY 01/12/17 [History] Loratadine [Claritin] 1 tab PO DAILY 01/12/17 [History] Multivitamin [Flintstones] 2 tab PO DAILY 01/12/17 [History] Labetalol [Trandate] 400 mg PO TID #90 tablet 01/17/17 [Rx] NIFEdipine XL (24 HR) [Procardia XL] 30 mg PO DAILY #30 tab.er.24 01/17/17 [Rx] OxyCODONE/APAP 5/325 [Percocet 5/325 MG] 1 each PO Q4HR PRN #42 tablet 01/17/17 [Rx] Allergies/Adverse Reactions: Allergies No Known Allergies Allergy (Verified 01/12/17 16:31) Data Procedures and tests throughout hospitalization: Laboratory Tests 01/12/17 01/12/17 01/12/17 16:30 16:30 16:30 WBC 10.5 RBC 3.99 Hgb 11.4 L Hct 33.2 L MCV 83.2 MCH 28.6 MCHC 34.3 RDW 13.4 Plt Count 234 MPV 10.7 Immature Gran % 0.9 Seg Neutrophils % 75.7 Lymphocytes % 14.4 Monocytes % 7.8 Eosinophils % 0.9 Basophils % 0.3 Neutrophils # 7.9 Lymphocytes # 1.5 Monocytes # 0.8 Eosinophils # 0.1 Basophils # 0.0 Sodium Potassium Chloride Carbon Dioxide BUN 8 Creatinine 0.77 Est GFR ( Amer) > 60 Est GFR (Non-Af Amer) > 60 BUN/Creatinine Ratio 10 Glucose Calculated Osmolality Uric Acid 4.2 Calcium Magnesium AST 16 ALT 8 Lactate Dehydrogenase 217 Urine Creatinine 89 Protein/Creatinin Ratio 2.37 H Urine Total Protein 211 H Baby's Blood Type Mother's Blood Type Rhogam Indicated 01/13/17 01/13/17 01/13/17 05:26 05:26 07:45 WBC 15.1 H RBC 4.06 Hgb 11.7 Hct 34.4 L MCV 84.7 MCH 28.8 MCHC 34.0 RDW 13.7 Plt Count 221 MPV 10.8 Immature Gran % 0.8 Seg Neutrophils % 85.0 Lymphocytes % 7.1 Monocytes % 6.7 Eosinophils % 0.1 Basophils % 0.3 Neutrophils # 12.8 H Lymphocytes # 1.1 Monocytes # 1.0 Eosinophils # 0.0 Basophils # 0.1 Sodium Potassium Chloride Carbon Dioxide BUN 6 L Creatinine 0.80 Est GFR ( Amer) > 60 Est GFR (Non-Af Amer) > 60 BUN/Creatinine Ratio 8 Glucose Calculated Osmolality Uric Acid 4.5 Calcium Magnesium 5.4 H AST 15 ALT 7 Lactate Dehydrogenase 202 Urine Creatinine Protein/Creatinin Ratio Urine Total Protein Baby's Blood Type O RH NEGATIVE Mother's Blood Type A RH NEGATIVE Rhogam Indicated NO 01/13/17 01/13/17 01/14/17 15:23 15:23 03:41 WBC 12.5 H 12.9 H RBC 3.28 L 3.28 L Hgb 9.6 L D 9.5 L Hct 27.5 L 27.6 L MCV 83.8 84.1 MCH 29.3 29.0 MCHC 34.9 34.4 RDW 13.6 13.9 Plt Count 190 189 MPV 10.5 10.3 Immature Gran % 0.6 1.2 Seg Neutrophils % 80.2 81.1 Lymphocytes % 10.5 9.9 Monocytes % 8.0 6.7 Eosinophils % 0.4 0.8 Basophils % 0.3 0.3 Neutrophils # 10.0 H 10.4 H Lymphocytes # 1.3 1.3 Monocytes # 1.0 0.9 Eosinophils # 0.1 0.1 Basophils # 0.0 0.0 Sodium Potassium Chloride Carbon Dioxide BUN 5 L Creatinine 0.73 Est GFR ( Amer) > 60 Est GFR (Non-Af Amer) > 60 BUN/Creatinine Ratio 7 Glucose Calculated Osmolality Uric Acid 4.7 Calcium Magnesium AST 17 ALT 7 Lactate Dehydrogenase 323 Urine Creatinine Protein/Creatinin Ratio Urine Total Protein Baby's Blood Type Mother's Blood Type Rhogam Indicated 01/15/17 01/15/17 01/16/17 14:34 14:34 04:03 WBC 14.9 H RBC 3.12 L Hgb 9.1 L Hct 26.6 L MCV 85.3 MCH 29.2 MCHC 34.2 RDW 14.0 Plt Count 221 MPV 9.8 Immature Gran % 0.7 Seg Neutrophils % 79.9 Lymphocytes % 11.5 Monocytes % 6.1 Eosinophils % 1.5 Basophils % 0.3 Neutrophils # 11.9 H Lymphocytes # 1.7 Monocytes # 0.9 Eosinophils # 0.2 Basophils # 0.0 Sodium 139 Potassium 3.9 Chloride 109 Carbon Dioxide 20 BUN 12 12 Creatinine 0.78 0.70 Est GFR ( Amer) > 60 > 60 Est GFR (Non-Af Amer) > 60 > 60 BUN/Creatinine Ratio 15 17 Glucose 82 Calculated Osmolality 287 Uric Acid 4.0 Calcium 8.8 Magnesium AST 15 ALT 7 Lactate Dehydrogenase 233 Urine Creatinine Protein/Creatinin Ratio Urine Total Protein Baby's Blood Type Mother's Blood Type Rhogam Indicated Date of admission: 01/12/17 18:22 Primary care physician: PCP NO Consults: 01/15/17 14:11 Consult to Hospitalist [CONS] Routine Consulting Provider: Hospitalist [place] Reason for Consult: HTN in pt Call Completed: Yes Discharging clinician: Juliette Salgado Anticipated date of discharge: 01/17/17 - Patient Status Disposition: Home, Self-Care Condition: Good Functional capacity at discharge: independent ambulation Overall status at discharge: patient is progressing back to baseline - Discharge Instructions Follow Up With: NO,PCP [Primary Care Provider] - Juliette Salgado DO [Partnered Physician] - Additional Instructions: Pre-e precautions. Twice daily BP monitoring at home with parameters to call/ come back if systolic > 150 or diastolic >100. 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 She will followup Thursday for clinic visit for BP and is to call and establish with PCP - Diet and Activity Activity: increase activity as tolerated Diet: advance to your usual diet Hospital Course Reason for admission: IUP at term, pre-eclampsia Delivery: section Episiotomy: none Laceration: none Other procedures: none complications: other (severe pre-eclampsia continued) Discharge diagnosis: IUP at term delivered, pre-eclampsia [place] baby: female Time Attestation: Total time spent providing and/or coordinating discharge services: Time Spent: Less than 30 minutes - VTE Reasons for not Prescribing Prophylaxis: Treatment not Indicated - Low risk for VTE Documentation of Mechanical Device: Intermittent pneumatic compression device Exam - Constitutional Vitals: Temp Pulse Resp BP Pulse Ox 98.5 F 101 18 129/81 96 01/17/17 08:17 01/17/17 09:25 01/17/17 08:17 01/17/17 09:25 01/17/17 08:17 General appearance IM: A&O X 3, no acute distress - Respiratory Respiratory exam: Present: CTAB. Absent: respiratory distress - Cardiovascular Cardiovascular exam IM: Present: RRR. Absent: irregular rhythm - GI/Abdominal GI/Abdominal exam IM: normal bowel sounds Incision: dry, dressed - Rectal Rectal exam: deferred - Uterine Tone: Firm Uterus Position: At Umbilicus - Extremities Exam Extremities exam IM: Absent: calf tenderness - Neurological Exam Neurological exam: oriented X3, reflexes normal (patellar DTR's +2/4 no clonus)
[2017-01-17] MEDS: Ibuprofen 600 MG TABLET PO PRN (14:06)
[2017-01-17 15:09] VITALS: BP 140/82
== END 2017-01-17 16:50 | disposition home or self-care (01) | DRG 766 ==
LOC: 1NENULAB → INTOOBSV 16:12 → OBSVTOIN 16:12
PROVIDERS: ADMIT Obstetrics & Gynecology; ATTEND Obstetrics & Gynecology

== ENCOUNTER 2020-08-20 04:25 | Inpatient (IN) ==
[~2020-08-20 04:25] MED LIST: *HR* FentaNYL (PF) 100 MCG/2 ML VIAL IVP PRN; Azithromycin 500 MG in 0.9 % Sodium Chloride 250 ML IVPB ONE; Famotidine 20 MG/2 ML VIAL IVP PRN; Lidocaine 1% 20 ML MDV INFILT PRN; Metoclopramide 10 MG/2 ML VIAL IVP PRN; Naloxone 0.4 MG/ML INJ IVP PRN; Ondansetron 4 MG/2 ML VIAL IVP PRN
[2020-08-20 04:45] LABS: Basophils # 0.1 K/mcL (0.0-0.2); Basophils % 0.7 %; Eosinophils # 0.1 K/mcL (0.0-0.6); Eosinophils % 1.2 %; Hematocrit 35.2 % (35.3-44.9); Hemoglobin 11.9 g/dL (11.5-15.4); Immature Granulocytes % 0.4 % (0-4); Lymphocytes % 20.1 %; Mean Corpuscular HGB Conc 33.8 g/dL (31.6-35.5); Mean Corpuscular Hemoglobin 27.4 pg (28.0-33.3); Mean Corpuscular Volume 81.1 fL (83.0-100.0); Mean Platelet Volume 10.6 fL (9.4-12.4); Monocytes # 0.7 K/mcL (0.0-1.3); Platelet Count 240 K/mcL (140-400); Red Blood Count 4.34 M/mcL (3.82-4.97); Red Cell Distribution Width 14.5 % (11.5-14.5); Segmented Neutrophils % 70.6 %; White Blood Count 9.9 K/mcL (4.3-11.1)
[2020-08-20 04:54] LABS: Amphetamine Screen,Urine Negative ng/mL (Cutoff=1000); Barbiturate Screen,Urine Negative ng/mL (Cutoff=200); Benzodiazepines Screen,Urine Negative ng/mL (Cutoff=200); Cannabinoid Screen,Urine Negative ng/mL (Cutoff = 50); Cocaine Screen,Urine Negative ng/mL (Cutoff= 300); Creatinine,Urine 106 mg/dL; Opiate Screen,Urine Negative ng/mL (Cutoff=300); Phencyclidine Screen,Urine Negative ng/mL (Cutoff=25)
[2020-08-20 05:09] LABS: Alanine Aminotransferase 7 Units/L (7-52); Aspartate Amino Transferase 13 Units/L (13-39); BUN/Creatinine Ratio 14 (6-26); Blood Urea Nitrogen 11 mg/dL (6-20); Lactate Dehydrogenase 129 Units/L (140-271); Uric Acid 5.6 mg/dL (2.3-7.6); eGFR For African Americans > 60 (> 60); eGFR For Non-African Americans > 60 (> 60)
[2020-08-20] MEDS ORDERED: Bupivacaine-MPF 0.25% 10 ML VIAL EP ONE (08:45)
[2020-08-20] MEDS ORDERED: *HR* FentaNYL (PF) 100 MCG/2 ML VIAL EP ONE (08:45)
[2020-08-20] MEDS ORDERED: Oxytocin 20 units/ LR 1000 mL 20 UNIT/1,000 ML BAG IVC SCH (08:45)
[2020-08-20] MEDS ORDERED: EPHEDrine 50 MG/ML VIAL IVP PRN (08:45)
[2020-08-20] MEDS ORDERED: *HR* FentaNYL (PF) 100 MCG/2 ML VIAL ONE ×2 (09:13→15:15)
[2020-08-20] MEDS ORDERED: Bupivacaine-MPF 0.25% 10 ML VIAL ONE (09:13)
[2020-08-20] MEDS: Ringers Solution, Lactated 1,000 ML IVC SCH ×3 (10:41→22:28)
[2020-08-20] MEDS: Epidural Premix (fent/bupiv) 110 ML EP SCH ×2 (10:43→16:49)
[2020-08-20 15:13] LABS: Basophils % 0.3 %; Eosinophils % 0.1 %; Hematocrit 35.6 % (35.3-44.9); Hemoglobin 11.9 g/dL (11.5-15.4); Immature Granulocytes % 0.5 % (0-4); Lymphocytes # 1.2 K/mcL (0.6-4.6); Lymphocytes % 8.7 %; Mean Corpuscular HGB Conc 33.4 g/dL (31.6-35.5); Mean Corpuscular Hemoglobin 27.7 pg (28.0-33.3); Mean Platelet Volume 10.4 fL (9.4-12.4); Monocytes # 0.7 K/mcL (0.0-1.3); Monocytes % 4.7 %; Platelet Count 251 K/mcL (140-400); Red Blood Count 4.29 M/mcL (3.82-4.97); Red Cell Distribution Width 14.6 % (11.5-14.5); Segmented Neutrophils % 85.7 %
[2020-08-20] MEDS ORDERED: Ropivacaine/PF 0.2% 20 ML VIAL ONE (15:15)
[2020-08-20 15:23] LABS: Protein/Creatinine Ratio,Urine 0.16 mg/mg (0.00-0.20)
[2020-08-20 15:32] LABS: Aspartate Amino Transferase 13 Units/L (13-39); eGFR For African Americans > 60 (> 60); eGFR For Non-African Americans > 60 (> 60)
[2020-08-20] MEDS ORDERED: Lidocaine/EPI 1:200k 2% PF 20 ML VIAL ONE (21:31)
[2020-08-20] MEDS ORDERED: *HR* Oxytocin 10 UNIT/ML VIAL IM ONE (21:32)
[2020-08-20] MEDS ORDERED: Ringers Solution, Lactated 1,000 ML ONE (21:33)
[2020-08-20] MEDS ORDERED: Acetaminophen IV 1,000 MG/100 ML BAG IVPB ONE (21:33)
[2020-08-20] MEDS ORDERED: *HR* Morphine Sulfate/PF 10 MG/10 ML AMPUL ONE (21:33)
[2020-08-20] MEDS ORDERED: Metoclopramide 10 MG/2 ML VIAL IVP ONE (21:35)
[2020-08-20] MEDS ORDERED: CeFAZolin Syr 3,000MG/30 ML 3,000 MG/30 ML SYRINGE IVPB ONE (21:35)
[2020-08-20] MEDS ORDERED: Famotidine 20 MG/2 ML VIAL IVP ONE (21:35)
[2020-08-20] MEDS ORDERED: *HR* Phenylephrine 10 MG/ML VIAL ONE (21:36)
[2020-08-20] MEDS ORDERED: 0.9 % Sodium Chloride 1,000 ML IVC SCH (21:45)
[2020-08-20] MEDS ORDERED: Azithromycin 500 MG in 0.9 % Sodium Chloride 250 ML IVPB ONE (22:11)
[2020-08-20] MEDS ORDERED: Acetaminophen 325 MG TABLET PO ONE (22:18)
[2020-08-21] MEDS: Epidural Premix (fent/bupiv) 110 ML EP SCH (00:33)
[2020-08-21] MEDS ORDERED: *HR* FentaNYL (PF) 100 MCG/2 ML VIAL ONE (02:10)
[2020-08-21] MEDS ORDERED: *HR* Midazolam HCl 2 MG/2 ML VIAL ONE (03:53)
[2020-08-21] MEDS ORDERED: Naloxone 0.4 MG/ML INJ IVP PRN ×2 (03:56→07:59)
[2020-08-21] MEDS ORDERED: Ondansetron 4 MG/2 ML VIAL IVP PRN ×2 (03:56→07:59)
[2020-08-21] MEDS ORDERED: *HR* Meperidine 25 MG/ML SYRINGE IVP PRN (03:56)
[2020-08-21] MEDS ORDERED: *HR* OxyCODONE Immed Rel 5 MG TABLET PO PRN (03:56)
[2020-08-21] MEDS ORDERED: *HR* FentaNYL (PF) 100 MCG/2 ML VIAL IVP PRN (03:56)
[2020-08-21] MEDS ORDERED: Ringers Solution, Lactated 1,000 ML ONE (04:31)
[2020-08-21] MEDS ORDERED: *HR* Oxytocin 10 UNIT/ML VIAL IM ONE (04:31)
[2020-08-21] MEDS ORDERED: Oxytocin 20 units/ LR 1000 mL 20 UNIT/1,000 ML BAG IVC SCH (07:59)
[2020-08-21] MEDS ORDERED: Sennosides 8.6 MG TABLET PO PRN (07:59)
[2020-08-21] MEDS ORDERED: Metoclopramide 10 MG/2 ML VIAL IVP PRN (07:59)
[2020-08-21] MEDS ORDERED: Simethicone 80 MG TAB.CHEW PO PRN (07:59)
[2020-08-21] MEDS: Prenatal Vit/FA 1 EACH TABLET PO SCH (09:02)
[2020-08-21] MEDS: Ibuprofen 600 MG TABLET PO PRN ×3 (09:02→20:24)
[2020-08-21] MEDS: Acetaminophen 325 MG TABLET PO PRN (11:34)
[2020-08-22] MEDS: Acetaminophen 325 MG TABLET PO PRN ×2 (03:39→10:00)
[2020-08-22] MEDS: *HR* OxyCODONE Immed Rel 5 MG TABLET PO PRN ×3 (03:39→16:28)
[2020-08-22 04:11] LABS: Basophils # 0.1 K/mcL (0.0-0.2); Basophils % 0.4 %; Eosinophils # 0.2 K/mcL (0.0-0.6); Eosinophils % 1.1 %; Immature Granulocytes % 0.5 % (0-4); Lymphocytes # 1.6 K/mcL (0.6-4.6); Lymphocytes % 9.2 %; Mean Corpuscular HGB Conc 33.4 g/dL (31.6-35.5); Mean Corpuscular Hemoglobin 28.4 pg (28.0-33.3); Mean Corpuscular Volume 84.8 fL (83.0-100.0); Mean Platelet Volume 10.4 fL (9.4-12.4); Monocytes % 5.9 %; Neutrophils # 14.3 K/mcL (1.6-8.9); Platelet Count 208 K/mcL (140-400); Red Blood Count 3.42 M/mcL (3.82-4.97); Red Cell Distribution Width 15.2 % (11.5-14.5); Segmented Neutrophils % 82.9 %; White Blood Count 17.2 K/mcL (4.3-11.1)
[2020-08-22 04:12] LABS: Hemoglobin 9.7 g/dL (11.5-15.4)
[2020-08-22] MEDS: Prenatal Vit/FA 1 EACH TABLET PO SCH (07:29)
[2020-08-22] MEDS: Ibuprofen 600 MG TABLET PO PRN ×2 (07:29→13:00)
[2020-08-22] MEDS ORDERED: *HR* Enoxaparin 60 MG/0.6 ML SYRINGE SQ SCH (10:07)
[2020-08-22 13:40] LABS: Alanine Aminotransferase 7 Units/L (7-52); Aspartate Amino Transferase 18 Units/L (13-39); BUN/Creatinine Ratio 16 (6-26); Blood Urea Nitrogen 13 mg/dL (6-20); Lactate Dehydrogenase 152 Units/L (140-271); Uric Acid 5.4 mg/dL (2.3-7.6); eGFR For African Americans > 60 (> 60); eGFR For Non-African Americans > 60 (> 60)
[2020-08-22 16:43] VITALS: BP 134/88
== END 2020-08-22 19:17 | disposition home or self-care (01) | DRG 788 ==
LOC: 1NENULAB → 1NENUOBS 08-21 07:37
PROVIDERS: ADMIT Obstetrics & Gynecology; ATTEND Obstetrics & Gynecology

== ENCOUNTER 2020-08-22 08:00 | Observation (INO) ==
[2020-08-26] MEDS ORDERED: NIFEdipine 10 MG CAPSULE PO ONE (21:17)
[2020-08-26] MEDS ORDERED: *HR* OxyCODONE/APAP 5/325 TABLET PO PRN (21:36)
[2020-08-26] MEDS: Ibuprofen 600 MG TABLET PO PRN (23:00)
[2020-08-26] MEDS: Magnesium Sulf 20 gm/SW 500mL 20 GM/500 ML IV.SOLN IVC SCH (23:06)
[2020-08-26 23:34] LABS: Hematocrit 30.6 % (35.3-44.9); Hemoglobin 9.9 g/dL (11.5-15.4); Mean Corpuscular HGB Conc 32.4 g/dL (31.6-35.5); Mean Corpuscular Hemoglobin 27.2 pg (28.0-33.3); Mean Corpuscular Volume 84.1 fL (83.0-100.0); Mean Platelet Volume 9.3 fL (9.4-12.4); Nucleated Red Blood Cells 0.2 /100 WBC (0); Platelet Count 366 K/mcL (140-400); Red Blood Count 3.64 M/mcL (3.82-4.97); Red Cell Distribution Width 14.4 % (11.5-14.5); White Blood Count 12.9 K/mcL (4.3-11.1)
[2020-08-26 23:53] LABS: Alanine Aminotransferase 26 Units/L (7-52); Aspartate Amino Transferase 31 Units/L (13-39); BUN/Creatinine Ratio 18 (6-26); Blood Urea Nitrogen 15 mg/dL (6-20); Lactate Dehydrogenase 209 Units/L (140-271); Uric Acid 4.9 mg/dL (2.3-7.6); eGFR For African Americans > 60 (> 60); eGFR For Non-African Americans > 60 (> 60)
[2020-08-27] MEDS ORDERED: Calcium Gluconate 1,000 MG/10 ML VIAL ONE
[2020-08-27 00:18] LABS: Basophils # 0.3 K/mcL (0.0-0.2); Lymphocytes # 1.6 K/mcL (0.6-4.6); Monocytes # 0.3 K/mcL (0.0-1.3); Neutrophils # 10.8 K/mcL (1.6-8.9)
[2020-08-27] MEDS: Ibuprofen 600 MG TABLET PO PRN ×2 (06:25→15:49)
[2020-08-27] MEDS: Magnesium Sulf 20 gm/SW 500mL 20 GM/500 ML IV.SOLN IVC SCH ×2 (06:26→19:34)
[2020-08-27] MEDS: *HR* Enoxaparin 30 MG/0.3 ML SYRINGE SQ SCH ×2 (06:26→17:32)
[2020-08-27] MEDS ORDERED: Metoclopramide 10 MG/2 ML VIAL IVP ONE (07:05)
[2020-08-27] MEDS: NIFEdipine XL (24 HR) 30 MG TAB.ER.24 PO SCH (08:31)
[2020-08-27] MEDS: Acetaminophen 325 MG TABLET PO PRN ×2 (11:58→20:32)
[2020-08-28] MEDS: Ibuprofen 600 MG TABLET PO PRN ×2 (01:23→08:30)
[2020-08-28] MEDS: *HR* Enoxaparin 30 MG/0.3 ML SYRINGE SQ SCH (07:12)
[2020-08-28] MEDS: NIFEdipine XL (24 HR) 30 MG TAB.ER.24 PO SCH (08:29)
[2020-08-28] MEDS: Acetaminophen 325 MG TABLET PO PRN (08:30)
[2020-08-28 12:17] VITALS: BP 117/70
== END 2020-08-28 13:00 | disposition home or self-care (01) ==
LOC: 1NENUOBS 08-26 20:51 → INTOOBSV 08-26 20:51
PROVIDERS: ADMIT Advanced Practice Midwife; ATTEND Advanced Practice Midwife